=== PATIENT | female | born 1990 | race Two or more races ===

== ENCOUNTER 2023-05-31 16:51 | Emergency (ER) | payer OTHER ==
[~2023-05-31] VITALS: Ht 167.6 cm; Wt 77.1 kg
[2023-05-31] MEDS ORDERED: TUSNEL LIQUID178 ML PO (20:02)
[2023-05-31] MEDS ORDERED: ALBUTEROL2.5 MG/3 M IH (20:02)
[2023-05-31] MEDS ORDERED: OSEL75CA PO (20:02)
== END 2023-05-31 20:12 | disposition home or self-care (01) ==
LOC: ER 16:52
PROVIDERS: General Practice
DX: J10.1 Influenza due to other identified influenza virus with other respiratory manifestations (principal); B34.9 Viral infection, unspecified; Z20.822 Contact with and (suspected) exposure to COVID-19; Z91.041 Radiographic dye allergy status